=== PATIENT | male | born 1950 | race Caucasian/White ===

== ENCOUNTER 2019-04-28 08:51 | Inpatient (IN) | payer MEDICARE, BC ==
[2019-04-28] MEDS ORDERED: Heparin (Artline) 1,000 ML ONE (09:08)
[2019-04-28] MEDS ORDERED: Lidocaine 1% (PF) 30 ML VIAL ONE (09:09)
[2019-04-28 09:10] LABS: #Basophils 0.1 thou/uL (0.0-0.2); #Eosinphils 0.2 thou/uL (0.0-0.7); #Lymphocytes 2.1 thou/uL (1.20-3.40); #Monocytes 0.9 thou/uL (0.11-0.59); #Neutrophils 6.4 thou/uL (1.40-6.50); %Basophils 0.9 % (0.0-1.0); %Eosinophils 2.3 % (0.0-10.0); %Lymphocytes 21.3 % (21.0-51.0); %Neutrophils 66.6 % (42.0-75.0); Hemoglobin 14.9 g/dL (14.0-18.0); Mean Corpuscular HGB CONC 32.6 g/dL (32.0-36.0); Mean Corpuscular Hemoglobin 30.2 pg (27.0-31.0); Mean Corpuscular Volume 92.8 fL (78.0-98.0); Mean Platelet Volume 8.8 fL (7.4-10.4); Platelet Count 156 thou/uL (130-400); RBC Distribution Width 12.8 % (11.5-14.5); Red Blood Cell (RBC) Count 4.93 mill/uL (4.70-6.10); White Blood Cell (WBC) Count 9.7 thou/uL (4.8-10.8)
[2019-04-28 09:18] LABS: INR-International Normal Ratio 0.9; PTT 30.6 SEC (22.9-36.1); Prothrombin Time 12.3 SEC (12.0-14.7)
[2019-04-28 09:23] LABS: ALT (SGPT) 13 U/L (8-55); AST (SGOT) 66 U/L (5-34); Albumin 4.9 g/dL (3.4-4.8); Alkaline Phosphatase 80 U/L (40-110); Anion Gap 13 mmol/L (10-20); BUN (Urea Nitrogen) 18 mg/dL (8.4-25.7); Bilirubin, Total 0.9 mg/dL (0.2-1.2); Calc. Creatinine Clearance 0 mL/min (70-130); Calcium 10.4 mg/dL (7.8-10.44); Carbon Dioxide 27 mmol/L (23-31); Chloride 103 mmol/L (98-107); Estimated GFR-MDRD 51; Globulin 2.8 g/dL (2.4-3.5); Glucose 107 mg/dL (83-110); Potassium 4.2 mmol/L (3.5-5.1); Protein, Total 7.7 g/dL (5.8-8.1); Sodium 139 mmol/L (136-145)
[2019-04-28] MEDS ORDERED: Fentanyl 100 MCG/2 ML VIAL ONE ×2 (09:24→13:10)
[2019-04-28] MEDS ORDERED: Midazolam HCl 2 mg/2 ml Vial ONE ×2 (09:24→13:10)
[2019-04-28] MEDS ORDERED: Heparin 10,000 UNITS/1 ML VIAL ONE (09:25)
[2019-04-28 09:39] LABS: CKMB 17.9 ng/mL (0-6.6)
[2019-04-28] MEDS ORDERED: Acetaminophen/Codeine 30-300mg Tablet PO PRN ×2 (09:52)
[2019-04-28] MEDS ORDERED: Sodium Chloride 0.9% 200 ML IV PRN (09:52)
[2019-04-28] MEDS ORDERED: Nitroglycerin 0.4 MG TAB (25 Tab Bottle) SL PRN (09:52)
[2019-04-28] MEDS ORDERED: Heparin (Artline) 500 ML ONE (09:53)
[2019-04-28] MEDS ORDERED: Sodium Chloride 0.9% 1,000 ML IV SCH (10:00)
[2019-04-28] MEDS ORDERED: Heparin 10,000 UNITS/ 10 ML VIAL SLOW IVP SCH (10:15)
[2019-04-28] MEDS ORDERED: Magnesium Sulfate 1 GM/2 ML VIAL ONE (10:28)
[2019-04-28] MEDS ORDERED: Sodium Bicarb 50 MEQ/50 ML Abboject 8.4% SYRINGE ONE (10:28)
[2019-04-28] MEDS ORDERED: Dexamethasone 20 MG/5 ML VIAL ONE (10:28)
[2019-04-28] MEDS ORDERED: Calcium Chloride 1 GM/10 ML Abboject SYRINGE ONE (10:28)
[2019-04-28] MEDS ORDERED: Potassium Chloride 60 MEQ/30 ML VIAL ONE (10:28)
[2019-04-28] MEDS ORDERED: Heparin 5,000 UNITS/ML VIAL ONE (10:28)
[2019-04-28] MEDS ORDERED: Heparin 30,000 units/30 ml VIAL ONE (10:28)
[2019-04-28] MEDS ORDERED: Lidocaine 2% PF 100 mg/5 ml Syringe ONE (10:28)
[2019-04-28] MEDS ORDERED: Vecuronium 10 MG VIAL ONE ×2 (10:28→13:10)
[2019-04-28] MEDS ORDERED: PHENYLEPHRINE-NS 100 MCG/ML 10 ML SYRINGE ONE (10:28)
[2019-04-28] MEDS ORDERED: Nitroglycerin 50 MG/250 ML BOT ONE (10:28)
[2019-04-28] MEDS ORDERED: Aminocaproic Acid 5 GM/20 ML VIAL ONE (10:28)
[2019-04-28] MEDS ORDERED: Cardioplegic Soln 1,000 ML BAG ONE (10:28)
[2019-04-28] MEDS ORDERED: Glycopyrrolate 0.2 MG/ML 5 ML SYRINGE ONE (10:28)
[2019-04-28] MEDS ORDERED: Thrombin 5000 UNITS/5 ML VIAL ONE (10:28)
[2019-04-28] MEDS ORDERED: Protamine Sulfate 250 MG/25 ML VIAL ONE (10:28)
[2019-04-28] MEDS ORDERED: Lidocaine 1% PF 5 ML VIAL ONE (10:28)
[2019-04-28] MEDS ORDERED: Ketorolac Tromethamine 30 MG/ML VIAL ONE (10:28)
[2019-04-28] MEDS ORDERED: Papaverine 60 MG/2 ML VIAL ONE (10:28)
[2019-04-28] MEDS ORDERED: ePHEDrine/0.9% NaCl/PF SYRINGE 50 mg/10 ml ONE (10:28)
[2019-04-28] MEDS ORDERED: Ondansetron PF 4 MG/2 ML Vial ONE (10:28)
[2019-04-28 10:54] LABS: Cardiac Risk 4.1 (Less than 4.5)
[2019-04-28] MEDS ORDERED: Iopamidol 370 76% 50 ML VIAL FS ONE (10:56)
[2019-04-28] MEDS ORDERED: Iopamidol 370 76% 100 ML VIAL ONE (10:56)
[2019-04-28] MEDS ORDERED: Heparin 25,000 units/D5W 500 ML IV SCH ×2 (11:00→11:15)
[2019-04-28 11:39] LABS: Prothrombin Time 13.4 SEC (12.0-14.7)
--- NOTE | 2019-04-28 11:41 | HP ---
HISTORY OF PRESENT ILLNESS: Devin Reyes is a 69-year-old male , who had a myocardial infarction in January 1997. He underwent placement of Palmaz- Rosa 4.0 x 15 mm and 3.0 x 15 mm in the LAD by Dr. Burgess, which on films at the present time appears to extend into the diagonal. He apparently has not had cardiology followup since that time. He denies any chest discomfort until April 24 when he noticed approximately 30 seconds of chest pressure. He had a few more episodes over the ensuing several days. Then, yesterday on April 27 at 4:30 a.m., he awoke with 30-40 minutes of chest pressure. He denies any shortness of breath, nausea, vomiting, or diaphoresis with this. This pain resolved, and he went on to play golf later that day without problems. He then decided to come to the emergency room this morning approximately 28 hours after his episode of chest pain, although he denies any chest pain since that time. PAST MEDICAL HISTORY: Hypertension, diabetes, and hypercholesterolemia. MEDICATIONS: None. ALLERGIES: SULFA. OPERATIONS: Multiple knee surgeries, hand surgery, right shoulder surgery, and carpal tunnel surgery. SOCIAL HISTORY: He continues to smoke 5 or 6 cigarettes per day. He has up to 5 or 6 beers at a time, but not every day. FAMILY HISTORY: Father had CABG. REVIEW OF SYSTEMS: A 12-point review of systems is otherwise unremarkable. PHYSICAL EXAMINATION: VITAL SIGNS: Blood pressure 132/70, pulse of 95. HEENT: PERRL. NECK: Supple. CHEST: Clear. CARDIAC: S1 and S2 normal without any S3, S4, or murmurs. Carotid upstrokes normal without bruits. ABDOMEN: Normal bowel sounds without tenderness or organomegaly. EXTREMITIES: Revealed no clubbing, cyanosis, or edema. NEUROLOGIC: Grossly intact. SKIN: Warm and dry. LABORATORY DATA: EKG demonstrates a new Q wave in V3. There also are new Q waves in II, III, and F with [address]-elevation. CBC is unremarkable. Sodium 139, potassium 4.2, chloride 103, carbon dioxide 27, BUN 18, creatinine 1.37, glucose 107, AST 66, CK-MB 17.9. Troponin I 17.611 (troponin and MB resulted after catheterization). IMPRESSION: 1. Inferior ST-elevation myocardial infarction, which appeared to occur 28 hours ago. On cardiac catheterization, the right coronary artery was open with thrombus present. 2. Three-vessel coronary artery disease. 3. History of LAD stent placement. 4. Anterior infarction, which probably occurred whenever he closed his LAD. This is probably an old finding. 5. Hypertension. 6. Hypercholesterolemia. 7. Diabetes. 8. The patient continues to smoke. 9. Positive family history. PLAN: It is recommended Mr. Reyes undergo catheterization even though he has been pain-free for 28 hours. Risks of catheterization were discussed including , myocardial infarction, dye reaction, vascular injury, CVA, transfusion, limb loss, renal loss, etc. Also risk of intervention with PTCA and stent placement was discussed including , myocardial infarction, emergent CABG, restenosis, stent thrombosis, vessel perforation, etc. He understands and agrees to proceed. Drug-eluting stent will be placed if needed. Job ID: [id number] ALICIA
[2019-04-28 11:44] LABS: PTT 135.5 SEC (22.9-36.1)
[2019-04-28] MEDS ORDERED: Communication Order-Pharmacy FS ONE (11:57)
--- NOTE | 2019-04-28 12:27 | RAD ---
XR Chest 1 View Portable HISTORY: Coronary artery disease. Preoperative evaluation. COMPARISON: None FINDINGS: The heart size is normal. The lungs are well expanded without focal areas of consolidation, pneumothorax or pleural effusions. IMPRESSION: No radiographic evidence of acute cardiopulmonary process.
[2019-04-28] MEDS ORDERED: Bupivacaine/Epinephrine 0.5% 10 ML VIAL ONE ×2 (13:07→13:08)
[2019-04-28] MEDS ORDERED: Albumin 5% 500 ML ONE (13:07)
[2019-04-28] MEDS ORDERED: Dexamethasone 4 mg/ml Vial ONE (13:07)
[2019-04-28] MEDS ORDERED: Dexmedetomidine 200 MCG/2 ML VIAL ONE (13:10)
[2019-04-28] MEDS ORDERED: Midazolam HCl 5 mg/5 ml Vial ONE (13:10)
[2019-04-28] MEDS ORDERED: Heparin 10,000 UNITS/1 ML VIAL 30,000 UNITS in Sodium Chloride 0.9% 1,000 ML FS SCH (13:15)
--- NOTE | 2019-04-28 13:55 | CON ---
DATE OF CONSULTATION: 04/28/2019 Chart reviewed/the patient examined/films reviewed. HISTORY OF PRESENT ILLNESS: Mr. Reyes is a 69-year-old gentleman, who was admitted with chest pain and elevated troponins. He was urgently taken to the quality control lab technician and found to have severe 3-vessel disease. Ejection fraction is 35% to 40% on ventriculogram. I have been asked to see and discuss coronary artery bypass grafting. He has been having chest pain on and off for the past 4-5 days. It got severe yesterday morning and took about 45 minutes to lucian on its own. He called Dr. Topete this morning, who referred him immediately to the emergency department. He has a history of coronary artery disease status post stenting in 1996. He also has diabetes and high blood pressure. His cholesterol has been managed with a statin. PAST MEDICAL HISTORY: 1. Coronary artery disease status post stenting. 2. Diabetes mellitus. 3. Hypertension. 4. Dyslipidemia. PAST SURGICAL HISTORY: 1. Right knee surgery post football injury. 2. Right shoulder surgery. 3. Hand surgery. SOCIAL HISTORY: He drinks alcohol socially. He smokes also socially. ALLERGIES: SULFA. CURRENT MEDICATIONS: 1. Glipizide 10 mg b.i.d. 2. Glucophage 1000 mg b.i.d. 3. Lisinopril 20 mg b.i.d. 4. Atorvastatin 20 mg nightly. 5. Aspirin 325 mg daily. REVIEW OF SYSTEMS: A 10-point review of systems is performed and negative except as above. PHYSICAL EXAMINATION: GENERAL: This is a well-developed, well-nourished man, resting comfortably in the ICU without complaint. VITAL SIGNS: He is in sinus rhythm with a normal-appearing EKG rhythm. Heart rate is 80 and blood pressure is 150/74. HEENT: Sclerae nonicteric. Pupils are equal and round bilaterally. NECK: Supple without bruit. CHEST: Clear bilaterally. HEART: Rhythm is regular without murmur. ABDOMEN: Soft and nontender. EXTREMITIES: No cyanosis, clubbing, or edema. VASCULAR: He has palpable carotid, radial, femoral pulses bilaterally. There is no dorsalis pedis pulse. He has palpable posterior tibial pulses. VENOUS: There are no venous varicosities or venous stasis changes. PSYCHIATRIC: He is awake, alert, and oriented to person, place, and time. ASSESSMENT AND PLAN: This is a very pleasant 69-year-old gentleman status post myocardial infarction with acute coronary syndrome. Urgent coronary artery bypass grafting is recommended. The risks, benefits, and options of surgery had been discussed with him. Potential targets included left anterior descending, diagonal, obtuse marginal and posterior descending artery. Job ID: [id number]
[2019-04-28] MEDS ORDERED: CEFAZOLIN 1 GM VIAL SLOW IVP SCH (14:00)
[2019-04-28] MEDS ORDERED: Aspirin 81 mg Enteric Coated Tablet ONE (15:00)
[2019-04-28] MEDS ORDERED: Sodium Chloride 0.9% 1,000 ML BAG ONE (15:00)
[2019-04-28] MEDS ORDERED: Metoprolol Tartrate 5 MG/5 ML VIAL ONE (15:00)
[2019-04-28] MEDS ORDERED: Heparin 10,000 UNITS/ 10 ML VIAL ONE (15:00)
[2019-04-28] MEDS ORDERED: Ondansetron PF 4 MG/2 ML Vial IVP PRN (17:46)
[2019-04-28] MEDS ORDERED: D5 1/2 NS w/20 mEq KCL 1,000 ML IV SCH (17:46)
[2019-04-28] MEDS ORDERED: Post-Op Insulin Drip Protocol IVPB ONE (17:46)
[2019-04-28] MEDS ORDERED: Mag-Al 1200 mg/1200 mg/30 ML UDCUP PO PRN (17:46)
[2019-04-28] MEDS ORDERED: hydrALAZINE 20 MG/ML VIAL SLOW IVP PRN (17:46)
[2019-04-28] MEDS ORDERED: Guaifenesin DM 100-10/5 ML UDCUP PO PRN (17:46)
[2019-04-28] MEDS ORDERED: Bisacodyl 5 MG TAB PO PRN (17:46)
[2019-04-28] MEDS ORDERED: Norepinephrine 8 MG/0.9% NS 250 ML IVPB PRN (17:46)
[2019-04-28] MEDS ORDERED: Fentanyl 100 MCG/2 ML VIAL SLOW IVP PRN (17:46)
[2019-04-28] MEDS ORDERED: Morphine 2 MG/ML SYRINGE SLOW IVP PRN (17:46)
[2019-04-28] MEDS ORDERED: Nitroglycerin 50 MG/250 ML BOT 250 ML IVPB PRN (17:46)
[2019-04-28] MEDS ORDERED: Hetastarch 6% 500 ML 500 ML IVPB PRN (17:46)
[2019-04-28] MEDS ORDERED: HYDROcodone/Acetaminophen 5/325 mg Tablet PO PRN (17:46)
[2019-04-28] MEDS ORDERED: Potassium Chloride 20 MEQ/100 ML PREMIX BAG IVPB PRN (17:46)
[2019-04-28] MEDS ORDERED: Bisacodyl 10 MG SUPP PR PRN (17:46)
[2019-04-28] MEDS ORDERED: Promethazine HCl 25 MG/ML VIAL IM PRN (17:46)
[2019-04-28] MEDS ORDERED: HUMULIN R 100 UNITS in Sodium Chloride 0.9% 100 ML IVPB SCH (17:48)
[2019-04-28] MEDS ORDERED: Dextrose 5% in Water 1,000 ML IV PRN (17:48)
[2019-04-28] MEDS ORDERED: Dextrose 50% Abboject 50 ML SYRINGE SLOW IVP PRN (17:48)
[2019-04-28] MEDS ORDERED: Morphine 4 MG/ML VIAL ONE (17:52)
[2019-04-28] MEDS ORDERED: Magnesium 2 GM/50 ML 2 GM in Premix Bag 1 BAG IVPB SCH (18:00)
[2019-04-28 18:01] LABS: INR-International Normal Ratio 1.4; PTT 33.5 SEC (22.9-36.1)
[2019-04-28] MEDS: Ketorolac Tromethamine 30 MG/ML VIAL IVP SCH (18:02)
[2019-04-28 18:12] LABS: #Eosinphils 0.1 thou/uL (0.0-0.7); #Lymphocytes 1.4 thou/uL (1.20-3.40); #Monocytes 0.6 thou/uL (0.11-0.59); #Neutrophils 11.9 thou/uL (1.40-6.50); %Basophils 0.3 % (0.0-1.0); %Eosinophils 0.8 % (0.0-10.0); %Lymphocytes 9.8 % (21.0-51.0); %Neutrophils 85.1 % (42.0-75.0); Hemoglobin 11.4 g/dL (14.0-18.0); Mean Corpuscular HGB CONC 32.8 g/dL (32.0-36.0); Mean Corpuscular Hemoglobin 30.4 pg (27.0-31.0); Mean Corpuscular Volume 92.6 fL (78.0-98.0); Mean Platelet Volume 9.1 fL (7.4-10.4); Platelet Count 90 thou/uL (130-400); RBC Distribution Width 12.6 % (11.5-14.5); Red Blood Cell (RBC) Count 3.75 mill/uL (4.70-6.10)
[2019-04-28 18:13] LABS: MDiff Complete? YES; Platelet Morphology Comment Appears Decreased; Polychromasia SLIGHT = 2-3 cells (100X) (0-2/hpf)
--- NOTE | 2019-04-28 18:13 | RAD ---
RADIOGRAPH CHEST 1 VIEW: Supine DATE: 04/28/2019 HISTORY: 69-year-old male status post open heart surgery COMPARISON: 04/28/2019 12:12 PM FINDINGS: There is no airspace density or pulmonary edema. The lateral costophrenic angles are sharp. Supine po sitioning makes this study insensitive for the detection of pneumothorax. Right subclavian central venous catheter with distal tip overlying the mid to lower portion of right atrium. New sternotomy wires. Mediastinal chest tubes, with distal tip of the abdomen at midline and distal tip of the other overly ing left upper lobe. IMPRESSION: 1. Status post open heart surgery with life support lines as mentioned above. 2. No acute pulmonary findings.
[2019-04-28 18:24] LABS: Anion Gap 13 mmol/L (10-20); BUN (Urea Nitrogen) 18 mg/dL (8.4-25.7); Calc. Creatinine Clearance 67 mL/min (70-130); Calcium 8.6 mg/dL (7.8-10.44); Carbon Dioxide 23 mmol/L (23-31); Chloride 108 mmol/L (98-107); Estimated GFR-MDRD 62; Glucose 202 mg/dL (83-110); Potassium 4.8 mmol/L (3.5-5.1); Sodium 139 mmol/L (136-145)
[2019-04-28] MEDS ORDERED: Acetaminophen 1,000 MG in Premix Bag 1 BAG IVPB SCH (19:15)
[2019-04-28] MEDS: Fentanyl 100 MCG/2 ML VIAL SLOW IVP PRN (19:35)
[2019-04-28 20:01] LABS: Critical Call Chem Troponin I RESULT DECREASING
[2019-04-28 20:29] LABS: CKMB 14.1 ng/mL (0-6.6); Critical Call CKMB RESULT DECREASING
[2019-04-28] MEDS ORDERED: Famotidine/PF 20 mg/2ml Vial SLOW IVP SCH (21:00)
[2019-04-28] MEDS: HYDROcodone/Acetaminophen 5/325 mg Tablet PO PRN (21:34)
[2019-04-28] MEDS: CEFAZOLIN 2 GM in Premix Bag 1 BAG IVPB SCH (21:42)
[2019-04-28 23:38] LABS: Hemoglobin 10.6 g/dL (14.0-18.0)
[2019-04-28 23:54] LABS: Potassium 3.9 mmol/L (3.5-5.1)
[2019-04-29] MEDS: Fentanyl 100 MCG/2 ML VIAL SLOW IVP PRN ×3 (00:27→20:58)
[2019-04-29] MEDS: Ketorolac Tromethamine 30 MG/ML VIAL IVP SCH ×4 (00:27→17:41)
--- NOTE | 2019-04-29 00:36 | OP ---
DATE OF PROCEDURE: 04/28/2019 PREOPERATIVE DIAGNOSES: Coronary artery disease/status post ST-elevation myocardial infarction/diabetes mellitus/hypertension/dyslipidemia. POSTOPERATIVE DIAGNOSES: Coronary artery disease/status post ST-elevation myocardial infarction/diabetes mellitus/hypertension/dyslipidemia. PROCEDURES PERFORMED: 1. Emergency coronary artery bypass grafting x4. a. Left internal mammary artery to 2.0 mm mid LAD - good conduit and target. b. Reverse saphenous vein to 3.0 mm PDA - good conduit and target. c. Reverse saphenous vein to 4.0 mm OM - good conduit and target. d. Reverse saphenous vein 3.0 mm diagonal - good conduit and target. INTERNATIONAL SOURCING MANAGER SURGEON: Uriel Ortiz MD ANESTHESIA: General endotracheal. ANESTHESIOLOGIST: Paola Floyd MD. PUMP TIME: 57 minutes. CROSS-CLAMP TIME: 33 minutes. LOW CORE TEMPERATURE: 34 degrees Celsius. LABORATORY SAMPLER: Mitali [place]. DRAINS: 24-Green[place] chest tubes x2. DRIPS: None. TRANSFUSIONS: None. DESCRIPTION OF PROCEDURE: After consent was obtained, the patient was brought to the operating room and placed in supine position on the operating room table. Appropriate central line was placed and general endotracheal anesthesia was induced. Chest and legs were prepped and draped in usual sterile fashion. Greater saphenous vein was harvested through skip incisions in the left leg. Wounds were irrigated and closed in layers. Median sternotomy was performed. Left internal mammary artery was harvested as a pedicle graft. The patient was systemically heparinized. Distal pedicle was divided and infused with papaverine. Thymic fat and pericardium were divided with electrocautery. Pericardial stay sutures were placed. Aortic and atrial cannulation was performed. After adequate heparinization, retrograde prime was performed. The patient was placed on cardiopulmonary bypass. Distal targets were marked. Aortic cross-clamp was applied and antegrade sanguineous cardioplegic arrest was obtained. 1 L of antegrade cold [place] cardioplegia was given. Topical cold solution was used. Reverse saphenous vein was anastomosed to the PDA in end-to-side fashion with running 7-0 Prolene suture. Anastomosis was tested and was hemostatic. Reverse saphenous vein was anastomosed to the OM in end-to-side fashion with running 7-0 Prolene suture. Anastomosis was tested and was hemostatic. Reverse saphenous vein was anastomosed to diagonal in end-to-side fashion with running 7-0 Prolene suture. Anastomosis was tested and was hemostatic. Mammary artery was brought through a window of the pericardium and anastomosed to the mid LAD in an end-to-side fashion with running 7-0 Prolene suture. On release of mammary clamps, good hooding of the anastomosis and good distal flow. Pedicle was secured with interrupted 6-0 Prolene suture. Cross-clamp was removed and partial occluding clamp placed. Saphenous veins were anastomosed to individual puncture sites on the aorta with a running 6-0 Prolene suture. The partial occluding clamp was removed and graft was deaired. Anastomoses were inspected for hemostasis, which was good. The patient was warmed and weaned from cardiopulmonary bypass. After resumption of sinus rhythm, good hemodynamics, temperature greater than 36.5, bypass was discontinued. Transfusions were given. Protamine was administered. Decannulation was then performed and pursestring suture secured. 24-[place] chest tubes were placed in the mediastinum. The sternum was treated with vancomycin paste. After adequate hemostasis had been obtained, sternum was closed with #7 wire. The sternum was treated with platelet rich plasma and wires were twisted and buried. The wounds were irrigated and treated with platelet poor plasma and closed in multiple layers. Needle, sponge, and instrument counts were all reported as correct at the end of the procedure. The patient tolerated the procedure well, was awakened, extubated, and transferred to the intensive care unit in stable, but critical condition. Job ID: [id number]
[2019-04-29] MEDS: HYDROcodone/Acetaminophen 5/325 mg Tablet PO PRN (01:45)
[2019-04-29 01:54] LABS: Critical Call Chem Troponin I RESULT DECREASING
[2019-04-29 02:14] LABS: CKMB 13.5 ng/mL (0-6.6); Critical Call CKMB RESULT DECREASING
[2019-04-29] MEDS ORDERED: Nicotine 7 MG PATCH TD SCH ×2 (05:00→23:59)
[2019-04-29 05:05] LABS: #Lymphocytes 0.6 thou/uL (1.20-3.40); #Monocytes 0.9 thou/uL (0.11-0.59); #Neutrophils 10.8 thou/uL (1.40-6.50); %Eosinophils 0.1 % (0.0-10.0); %Lymphocytes 4.9 % (21.0-51.0); %Monocytes 7.6 % (0.0-10.0); %Neutrophils 87.4 % (42.0-75.0); Hemoglobin 10.1 g/dL (14.0-18.0); Mean Corpuscular HGB CONC 33.6 g/dL (32.0-36.0); Mean Corpuscular Hemoglobin 30.8 pg (27.0-31.0); Mean Corpuscular Volume 91.7 fL (78.0-98.0); Mean Platelet Volume 9.7 fL (7.4-10.4); Platelet Count 106 thou/uL (130-400); RBC Distribution Width 12.5 % (11.5-14.5); Red Blood Cell (RBC) Count 3.29 mill/uL (4.70-6.10); White Blood Cell (WBC) Count 12.3 thou/uL (4.8-10.8)
[2019-04-29 05:21] LABS: Anion Gap 14 mmol/L (10-20); BUN (Urea Nitrogen) 21 mg/dL (8.4-25.7); Calc. Creatinine Clearance 60 mL/min (70-130); Calcium 8.8 mg/dL (7.8-10.44); Carbon Dioxide 23 mmol/L (23-31); Chloride 107 mmol/L (98-107); Estimated GFR-MDRD 55; Glucose 131 mg/dL (83-110); Potassium 4.5 mmol/L (3.5-5.1); Sodium 139 mmol/L (136-145)
[2019-04-29 05:59] LABS: Critical Call Chem Troponin I RESULT DECREASING
[2019-04-29 06:20] LABS: CKMB 9.8 ng/mL (0-6.6); Critical Call CKMB RESULT DECREASING
[2019-04-29] MEDS: CEFAZOLIN 2 GM in Premix Bag 1 BAG IVPB SCH ×2 (06:35→14:20)
[2019-04-29 07:14] VITALS: BMI 27.5
[2019-04-29] MEDS: Acetaminophen 325 MG TAB PO PRN (07:32)
[2019-04-29] MEDS: traMADol HCl 50 MG TAB PO PRN ×2 (07:32→17:43)
[2019-04-29] MEDS: glipiZIDE 10 MG TAB PO SCH ×2 (07:38→17:50)
[2019-04-29] MEDS ORDERED: Insulin Glargine 12 UNITS in Pre-Filled Syringe 1 EACH SC SCH (07:45)
--- NOTE | 2019-04-29 07:55 | CON ---
DATE OF CONSULTATION: REQUESTING PHYSICIAN: Dr. Aponte. REASON FOR CONSULTATION: Medical management of post-CABG patient. HISTORY OF PRESENTING COMPLAINT: A 69-year-old male with past medical history of hypertension, diabetes, chronic tobacco use, developed substernal chest pain, and presented for chest pain. Noted with EKG changes and ST-elevation ME. The patient underwent urgent cardiac cath with finding of 4-vessel disease. He underwent subsequent 4-vessel CABG that was unremarkable. He is currently extubated and lying in bed. He denies any headache or dizziness. He complains of chest pain now over the surgical sites. He denies any shortness of breath. Positive family history of coronary artery disease with father having CABG in the past. PAST MEDICAL HISTORY: Hypertension, diabetes mellitus. PAST SURGICAL HISTORY: Knee surgery. HOME MEDICATIONS: Reviewed. See MAR. ALLERGIES: SULFA DRUGS. SOCIAL HISTORY: The patient denies any alcohol or illicit drug use. Admits to 4 to 5 cigarette use per day, and trying to quit. REVIEW OF SYSTEMS: All systems review x14 were negative except as mentioned above. FAMILY HISTORY: History of coronary artery disease in the father. PHYSICAL EXAMINATION: VITAL SIGNS: Currently, blood pressure of 95/61, pulse of 87, respiratory rate of 18, and O2 sat of 95% on 2 L nasal cannula. GENERAL: Average built elderly male, lying in bed, conversant. HEENT: Head is atraumatic and normocephalic. Pupils are equal and reactive to light. CARDIOVASCULAR: S1 and S2. Rate and rhythm regular. CHEST: Good air entry bilaterally. Clear drain tubes in situ. ABDOMEN: Full, soft, . Bowel sounds positive. EXTREMITIES: No calf tenderness dressing area in situ. NEUROLOGIC: The patient is alert and oriented. Cranial nerves 2 through 12 grossly intact. LABORATORY DATA: Reviewed. See previous lab on presentation. Current glucose trending at 118. Troponin at presentation was 13. Hemoglobin , hematocrit Potas[place] 4.8, creatinine 1.1. IMPRESSION: 1. Non-ST elevation myocardial infarction-status post coronary artery bypass grafting now. 2. History of hypertension. 3. History of diabetes mellitus. PLAN: Agree with current management. Continue insulin drip for now. We switch to sliding insulin in a.m. Continue gentle IV fluid. We initiate nicotine patch in a.m. Continue postsurgical management. Nothing more to add at this time. We will continue to follow along. We defer lipid profile to Cardiology. DVT prophylaxis, can resume heparin subcu in a.m. We will continue to follow along. Time spent on review of record and discussion of the patient greater than 50 minutes. Job ID: [id number]
--- NOTE | 2019-04-29 08:32 | RAD ---
CHEST ONE VIEW: INDICATIONS: History of status post open heart surgery. COMPARISON: Prior exam dated 04/28/2019. FINDINGS: Right-sided subclavian central venous catheter, mediastinal drain and left-sided thoracostomy tube is unchanged. Cardiomegaly with post CABG change is stable. No pneumothorax is evident. The lungs are c lear. No pleural effusion is evident. IMPRESSION: 1. Stable mild cardiomegaly and post coronary artery bypass grafting change. 2. Tubes and lines as above. POS: TPC
[2019-04-29] MEDS ORDERED: Aspirin 325 MG TAB PO SCH (09:00)
[2019-04-29] MEDS: Magnesium 2 GM/50 ML 2 GM in Premix Bag 1 BAG IVPB SCH (09:11)
--- NOTE | 2019-04-29 10:01 | PDOC.HOSPP ---
- Subjective Encounter Date: 04/29/19 Encounter Time: 09:59 Subjective: Mr. Reyes was seen today in follow-up post CABG. He notes some soreness in his chest, but expected from surgery. He denies dyspnea. - Objective Vital Signs & Weight: Vital Signs (12 hours) Temp Pulse Resp Pulse Ox 04/29/19 08:00 98.3 F 98 04/29/19 07:04 98 19 98 04/29/19 04:00 98.1 F 04/29/19 02:33 98 04/29/19 00:00 97.6 F 04/28/19 23:55 82 16 99 Weight Weight 181 lb 7.047 oz Most Recent Monitor Data Heart Rate from ECG 104 NIBP 100/55 NIBP BP-Mean 70 Respiration from ECG 13 SpO2 97 I&O: 04/28/19 04/29/19 04/30/19 06:59 06:59 06:59 Intake Total 1108.5 120 Output Total 930 70 Balance 178.5 50 Result Diagrams: 04/29/19 04:30 04/29/19 04:30 Additional Labs: Accuchecks 04/29/19 04/29/19 04/29/19 08:54 06:16 05:26 POC Glucose 146 H 149 H 143 H 04/29/19 04/29/19 04/29/19 04:34 03:10 02:29 POC Glucose 147 H 110 122 H 04/29/19 04/29/19 04/28/19 01:21 00:22 23:01 POC Glucose 118 H 113 H 116 H 04/28/19 04/28/19 04/28/19 22:17 21:13 20:08 POC Glucose 154 H 158 H 188 H 04/28/19 04/28/19 04/28/19 19:23 17:46 16:50 POC Glucose 200 H 215 H 172 H 04/28/19 04/28/19 04/28/19 16:16 15:42 15:09 POC Glucose 182 H 161 H 151 H 04/28/19 14:11 POC Glucose 118 H Hospitalist ROS - Medication Medications: Active Medications Generic Name Dose Route Start Last Admin Trade Name Freq PRN Reason Stop Dose Admin Acetaminophen 650 mg 04/28/19 17:46 04/29/19 07:32 Tylenol PO 650 mg Q6H PRN Administration Headache/Fever Or Mild Pain Albumin Human 12.5 gm 04/28/19 17:46 04/29/19 01:48 Albumin 5% IVPB 04/29/19 17:47 12.5 gm Q6H PRN Administration To Maintain SBP> 90 mmHG Albuterol/Ipratropium 3 ml 04/28/19 19:00 04/29/19 07:04 Duoneb NEB 3 ml [id number] BRODY Administration Aspirin 325 mg 04/29/19 09:00 04/29/19 09:11 Aspirin PO 325 mg DAILY BRODY Administration Fentanyl 50 mcg 04/28/19 17:46 04/29/19 04:23 Sublimaze SLOW IVP 04/30/19 17:14 50 mcg Q2H PRN Administration Severe Pain (7-10) Glipizide 10 mg 04/29/19 07:30 04/29/19 07:38 Glucotrol PO 10 mg BID-AC BRODY Administration Cefazolin Sodium/Dextrose 2 gm 50 mls @ 100 mls/hr 04/28/19 22:00 04/29/19 06 :35 / Device IVPB 04/29/19 14:29 50 mls Q8HR BRODY Administration Magnesium Sulfate 2 gm/ Device 50 mls @ 50 mls/hr 04/29/19 09:00 04/29/19 09: 11 IVPB 04/30/19 09:59 50 mls QAM BRODY Administration Insulin Glargine 12 units/ 0.12 mls @ 0 mls/hr 04/29/19 07:45 04/29/19 09:00 Miscellaneous Medication SC 04/29/19 10:00 0.12 mls NOW BRODY Administration Ketorolac Tromethamine 15 mg 04/28/19 18:00 04/29/19 06:35 Toradol IVP 05/01/19 18:01 15 mg Q6HR BRODY Administration Nicotine 7 mg 04/29/19 05:00 04/29/19 04:44 Nicoderm Patch TD 7 mg Q24HR BRODY Administration Pantoprazole Sodium 40 mg 04/29/19 09:00 04/29/19 07:32 Protonix PO 40 mg DAILY BRODY Administration Potassium Chloride 20 meq 04/28/19 17:46 04/29/19 01:55 Kcl IVPB 20 meq PRN PRN Administration K level </= 4.0 Tramadol HCl 50 mg 04/29/19 06:54 04/29/19 07:32 Ultram PO 50 mg Q6H PRN Administration Moderate Pain (4-6) - Exam Eye: PERRL Heart: RRR, no gallops, no rubs, normal peripheral pulses, murmur present, II/ IV (systolic at the base) Respiratory: CTAB, no wheezes, no rales, no ronchi, normal chest expansion, no tachypnea, normal percussion Gastrointestinal: soft, non-tender, non-distended, normal bowel sounds, no palpable masses, no hepatomegaly Extremities: no cyanosis, no clubbing, no edema Hosp A/P (1) CAD (coronary artery disease) Code(s): I25.10 - ATHSCL HEART DISEASE OF [place] CORONARY ARTERY W/O ANG PCTRS Status: Acute (2) Hypertension Code(s): I10 - ESSENTIAL (PRIMARY) HYPERTENSION Status: Acute (3) Diabetes mellitus type 2 in nonobese Code(s): E11.9 - TYPE 2 DIABETES MELLITUS WITHOUT COMPLICATIONS Status: Acute - Plan * CAD s/p CABG X4 vessels- he is clinically stable * HTN- blood pressure is controlled * DM- blood glucose is stable- he has been placed back on Glypizide, and taken off the insulin drip * Continue SSI * Continue Post op care as per CV surgery
[2019-04-29] MEDS: Insulin Regular 300 UNITS/3 ML VIAL SC PRN ×2 (17:45→20:58)
[2019-04-29] MEDS: Atorvastatin Calcium 40 MG TAB PO SCH (20:01)
[2019-04-29] MEDS ORDERED: Bisacodyl 5 MG TAB PO PRN (20:48)
[2019-04-29] MEDS ORDERED: Bisacodyl 10 MG SUPP PR PRN (20:48)
[2019-04-29] MEDS ORDERED: diphenhydrAMINE 25 MG CAP PO PRN (20:48)
[2019-04-29] MEDS ORDERED: Nitroglycerin 0.4 MG TAB (25 Tab Bottle) SL PRN (20:48)
[2019-04-29] MEDS ORDERED: Guaifenesin DM 100-10/5 ML UDCUP PO PRN (20:48)
[2019-04-29] MEDS ORDERED: Artificial Tears 18 DROP/0.9 ML EA EYE PRN (20:48)
[2019-04-29] MEDS ORDERED: Zolpidem Tartrate 5 MG TAB PO PRN (20:48)
[2019-04-29] MEDS ORDERED: Mineral Oil ENEMA PR PRN (20:48)
[2019-04-29] MEDS ORDERED: Mag-Al 1200 mg/1200 mg/30 ML UDCUP PO PRN (20:48)
[2019-04-30] MEDS: Ketorolac Tromethamine 30 MG/ML VIAL IVP SCH ×5 (00:02→23:34)
[2019-04-30] MEDS ORDERED: Amiodarone 150 MG, Admixture Fee 1 EACH in Dextrose 5% in Water 100 ML IVPB SCH (03:15)
[2019-04-30] MEDS: traMADol HCl 50 MG TAB PO PRN (03:22)
[2019-04-30] MEDS: Amiodarone 450 MG, Admixture Fee 1 EACH in Dextrose 5% in Water 250 ML IVPB SCH ×2 (03:30→10:04)
[2019-04-30 03:47] LABS: ALT (SGPT) 7 U/L (8-55); AST (SGOT) 31 U/L (5-34); Albumin 3.6 g/dL (3.4-4.8); Alkaline Phosphatase 48 U/L (40-110); Bilirubin, Direct 0.4 mg/dL (0.1-0.3); Bilirubin, Total 0.7 mg/dL (0.2-1.2); Magnesium 2.1 mg/dL (1.6-2.6); Protein, Total 5.6 g/dL (5.8-8.1)
[2019-04-30] MEDS ORDERED: Digoxin 0.5 MG/2 ML AMP SLOW IVP SCH ×4 (07:00→18:00)
[2019-04-30] MEDS: Aspirin 325 mg Enteric Coated Tablet PO SCH (07:57)
[2019-04-30] MEDS: glipiZIDE 10 MG TAB PO SCH ×2 (07:58→16:41)
[2019-04-30] MEDS: Magnesium 2 GM/50 ML 2 GM in Premix Bag 1 BAG IVPB SCH (07:58)
[2019-04-30] MEDS: Insulin Regular 300 UNITS/3 ML VIAL SC PRN ×3 (08:18→22:16)
--- NOTE | 2019-04-30 13:17 | PDOC.HOSPP ---
- Subjective Encounter Date: 04/30/19 Encounter Time: 13:15 Subjective: Mr. Reyes was seen today in follow-up post CABG. He does not have any complaints except feeling tired. His heart rate was also noted to be elevated. - Objective Vital Signs & Weight: Vital Signs (12 hours) Temp Pulse Resp BP Pulse Ox 04/30/19 12:16 98.9 F 95 20 125/63 04/30/19 12:11 96 04/30/19 11:25 97.3 F L 138 H 20 104/57 L 95 04/30/19 10:32 103/64 04/30/19 10:21 146 H 04/30/19 09:28 96/61 04/30/19 08:06 97.7 F 146 H 16 97/72 96 04/30/19 07:55 145 H 04/30/19 03:50 99.1 F 162 H 16 104/59 L 99 04/30/19 02:31 99.2 F 94 20 95/60 97 Weight Weight 185 lb 9.6 oz Most Recent Monitor Data Heart Rate from ECG 111 NIBP 123/61 NIBP BP-Mean 81 Respiration from ECG 27 SpO2 96 I&O: 04/29/19 04/30/19 05/01/19 06:59 06:59 06:59 Intake Total 1108.5 1190 Output Total 930 380 Balance 178.5 810 Result Diagrams: 04/29/19 04:30 04/29/19 04:30 Additional Labs: Accuchecks 04/30/19 04/30/19 04/29/19 10:42 05:45 20:37 POC Glucose 274 H 227 H 217 H 04/29/19 04/29/19 19:53 17:25 POC Glucose 99 159 H Hospitalist ROS - Medication Medications: Active Medications Generic Name Dose Route Start Last Admin Trade Name Freq PRN Reason Stop Dose Admin Acetaminophen 650 mg 04/28/19 17:46 04/29/19 07:32 Tylenol PO 650 mg Q6H PRN Administration Headache/Fever Or Mild Pain Aspirin 325 mg 04/30/19 09:00 04/30/19 07:57 Ecotrin PO 325 mg DAILY BRODY Administration Atorvastatin Calcium 40 mg 04/29/19 21:00 04/29/19 20:01 Lipitor PO 40 mg HS BRODY Administration Digoxin 0.125 mg 04/30/19 09:00 04/30/19 10:21 Lanoxin SLOW IVP 0.125 mg DAILY BRODY Administration Digoxin 0.25 mg 04/30/19 12:00 04/30/19 12:11 Lanoxin SLOW IVP 04/30/19 14:00 0.25 mg 1200 BRODY Administration Fentanyl 50 mcg 04/28/19 17:46 04/29/19 20:58 Sublimaze SLOW IVP 04/30/19 17:14 50 mcg Q2H PRN Administration Severe Pain (7-10) Glipizide 10 mg 04/29/19 07:30 04/30/19 07:58 Glucotrol PO 10 mg BID-AC BRODY Administration Amiodarone HCl 450 mg/ 259 mls @ 0 mls/hr 04/30/19 03:15 04/30/19 10:04 Miscellaneous Medication 1 IVPB 259 mls each/ Dextrose/Water INF BRODY Administration Protocol As Directed Insulin Human Regular 0 units 04/28/19 17:48 04/30/19 12:25 Humulin R SC 8 units Q4H PRN Administration POST OP SLIDING SCALE Protocol Ketorolac Tromethamine 15 mg 04/28/19 18:00 04/30/19 12:06 Toradol IVP 05/01/19 18:01 15 mg Q6HR BRODY Administration Pantoprazole Sodium 40 mg 04/29/19 09:00 04/30/19 07:59 Protonix PO 40 mg DAILY BRODY Administration Potassium Chloride 20 meq 04/28/19 17:46 04/29/19 01:55 Kcl IVPB 20 meq PRN PRN Administration K level </= 4.0 Tramadol HCl 50 mg 04/29/19 06:54 04/30/19 03:22 Ultram PO 50 mg Q6H PRN Administration Moderate Pain (4-6) - Exam Eye: PERRL Heart: RRR, no murmur, no gallops, no rubs, normal peripheral pulses Respiratory: CTAB, no wheezes, no rales, no ronchi, normal chest expansion, no tachypnea, normal percussion Gastrointestinal: soft, non-tender, non-distended, normal bowel sounds, no palpable masses, no hepatomegaly, no splenomegaly Extremities: no cyanosis, no clubbing, no edema Hosp A/P (1) CAD (coronary artery disease) Code(s): I25.10 - ATHSCL HEART DISEASE OF [place] CORONARY ARTERY W/O ANG PCTRS Status: Acute (2) Hypertension Code(s): I10 - ESSENTIAL (PRIMARY) HYPERTENSION Status: Acute (3) Diabetes mellitus type 2 in nonobese Code(s): E11.9 - TYPE 2 DIABETES MELLITUS WITHOUT COMPLICATIONS Status: Acute - Plan * CAD s/p CABG X4 vessels- he has developed AFIB with RVR and has been placed on a Cardizem drip * HTN- blood pressure is controlled * DM- blood glucose is a bit elevated- will add a low dose long acting insulin * Continue SSI * Continue Cardiac Rehab
[2019-04-30] MEDS: Insulin Glargine 5 UNITS in Pre-Filled Syringe 1 EACH SC SCH (22:18)
[2019-04-30] MEDS: Atorvastatin Calcium 40 MG TAB PO SCH (22:18)
[2019-05-01] MEDS: Amiodarone 450 MG, Admixture Fee 1 EACH in Dextrose 5% in Water 250 ML IVPB SCH (00:42)
[2019-05-01] MEDS: traMADol HCl 50 MG TAB PO PRN ×4 (04:10→23:09)
[2019-05-01 04:33] LABS: Anion Gap 7 mmol/L (10-20); BUN (Urea Nitrogen) 22 mg/dL (8.4-25.7); Calc. Creatinine Clearance 58 mL/min (70-130); Calcium 8.5 mg/dL (7.8-10.44); Carbon Dioxide 26 mmol/L (23-31); Chloride 103 mmol/L (98-107); Estimated GFR-MDRD 50; Glucose 116 mg/dL (83-110); Potassium 3.9 mmol/L (3.5-5.1); Sodium 132 mmol/L (136-145)
[2019-05-01 04:37] LABS: Digoxin 1.08 ng/mL (0.8-2.0)
[2019-05-01] MEDS: Ketorolac Tromethamine 30 MG/ML VIAL IVP SCH ×3 (05:10→17:14)
[2019-05-01] MEDS: glipiZIDE 10 MG TAB PO SCH ×2 (08:41→16:14)
[2019-05-01] MEDS: Aspirin 325 mg Enteric Coated Tablet PO SCH (08:41)
[2019-05-01] MEDS: Amiodarone 200 MG TAB PO SCH ×2 (09:18→20:44)
[2019-05-01] MEDS: Insulin Regular 300 UNITS/3 ML VIAL SC PRN (11:20)
--- NOTE | 2019-05-01 11:24 | PDOC.HOSPP ---
- Subjective Encounter Date: 05/01/19 Encounter Time: 11:22 Subjective: Mr. Reyes was seen today in follow-up post CABG. He does not have any complaints. He says he feels much better today. - Objective Vital Signs & Weight: Vital Signs (12 hours) Temp Pulse Resp BP Pulse Ox 05/01/19 08:00 98.5 F 91 18 110/58 L 95 05/01/19 03:35 98.8 F 86 18 106/57 L 92 L Weight Weight 185 lb 6.4 oz Most Recent Monitor Data Heart Rate from ECG 111 NIBP 123/61 NIBP BP-Mean 81 Respiration from ECG 27 SpO2 96 I&O: 04/30/19 05/01/19 05/02/19 06:59 06:59 06:59 Intake Total 1190 450 120 Output Total 380 600 250 Balance 810 -150 -130 Result Diagrams: 04/29/19 04:30 05/01/19 03:56 Additional Labs: Accuchecks 05/01/19 05/01/19 04/30/19 10:38 05:21 20:08 POC Glucose 209 H 140 H 174 H 04/30/19 16:46 POC Glucose 126 H Hospitalist ROS - Medication Medications: Active Medications Generic Name Dose Route Start Last Admin Trade Name Freq PRN Reason Stop Dose Admin Acetaminophen 650 mg 04/28/19 17:46 04/29/19 07:32 Tylenol PO 650 mg Q6H PRN Administration Headache/Fever Or Mild Pain Amiodarone HCl 400 mg 05/01/19 09:00 05/01/19 09:18 Cordarone PO 400 mg BID BRODY Administration Aspirin 325 mg 04/30/19 09:00 05/01/19 08:41 Ecotrin PO 325 mg DAILY BRODY Administration Atorvastatin Calcium 40 mg 04/29/19 21:00 04/30/19 22:18 Lipitor PO 40 mg HS BRODY Administration Glipizide 10 mg 04/29/19 07:30 05/01/19 08:41 Glucotrol PO 10 mg BID-AC BRODY Administration Amiodarone HCl 450 mg/ 259 mls @ 0 mls/hr 04/30/19 03:15 05/01/19 00:42 Miscellaneous Medication 1 IVPB 05/01/19 12:00 259 mls each/ Dextrose/Water INF BRODY Administration Protocol As Directed Insulin Glargine 5 units/ 0.05 mls @ 0 mls/hr 04/30/19 21:00 04/30/19 22:18 Miscellaneous Medication SC 0.05 mls HS BRODY Administration Insulin Human Regular 0 units 04/28/19 17:48 04/30/19 22:16 Humulin R SC 4 units Q4H PRN Administration POST OP SLIDING SCALE Protocol Ketorolac Tromethamine 15 mg 04/28/19 18:00 05/01/19 05:10 Toradol IVP 05/01/19 18:01 15 mg Q6HR BRODY Administration Pantoprazole Sodium 40 mg 04/29/19 09:00 05/01/19 08:41 Protonix PO 40 mg DAILY BRODY Administration Potassium Chloride 20 meq 04/28/19 17:46 04/29/19 01:55 Kcl IVPB 20 meq PRN PRN Administration K level </= 4.0 Sodium Chloride 10 ml 04/28/19 17:46 05/01/19 08:42 Flush - Normal Saline IVF 10 ml PRN PRN Administration Saline Flush Tramadol HCl 50 mg 04/29/19 06:54 05/01/19 04:10 Ultram PO 50 mg Q6H PRN Administration Moderate Pain (4-6) - Exam Eye: PERRL Heart: RRR, no murmur, no gallops, no rubs, normal peripheral pulses Respiratory: CTAB, no wheezes, no rales, no ronchi, normal chest expansion, no tachypnea Gastrointestinal: soft, non-tender, non-distended, normal bowel sounds, no palpable masses, no hepatomegaly, no splenomegaly Extremities: no cyanosis, no clubbing Hosp A/P (1) CAD (coronary artery disease) Code(s): I25.10 - ATHSCL HEART DISEASE OF [place] CORONARY ARTERY W/O ANG PCTRS Status: Acute (2) Hypertension Code(s): I10 - ESSENTIAL (PRIMARY) HYPERTENSION Status: Acute (3) Diabetes mellitus type 2 in nonobese Code(s): E11.9 - TYPE 2 DIABETES MELLITUS WITHOUT COMPLICATIONS Status: Acute - Plan * CAD s/p CABG X4 vessels- * AFIB- he has converted to sinus rhythm- he is on an Amiodarone drip- await further recommendations from Cardiology * HTN- blood pressure is controlled * DM- blood glucose is a bit elevated- low dose of Lantus has been added- will monitor * Continue SSI * Continue Cardiac Rehab
[2019-05-01] MEDS: Carvedilol 3.125 MG TAB PO SCH (17:16)
[2019-05-01] MEDS: Insulin Glargine 5 UNITS in Pre-Filled Syringe 1 EACH SC SCH (20:42)
[2019-05-01] MEDS: Atorvastatin Calcium 40 MG TAB PO SCH (20:44)
[2019-05-02] MEDS: traMADol HCl 50 MG TAB PO PRN ×2 (06:10→19:42)
[2019-05-02] MEDS: glipiZIDE 10 MG TAB PO SCH ×2 (09:14→18:36)
[2019-05-02] MEDS: Carvedilol 3.125 MG TAB PO SCH (09:14)
[2019-05-02] MEDS: Aspirin 325 mg Enteric Coated Tablet PO SCH (09:14)
[2019-05-02] MEDS: Amiodarone 200 MG TAB PO SCH ×2 (09:15→20:40)
[2019-05-02 09:44] LABS: #Eosinphils 0.2 thou/uL (0.0-0.7); #Monocytes 0.7 thou/uL (0.11-0.59); #Neutrophils 5.3 thou/uL (1.40-6.50); %Basophils 0.3 % (0.0-1.0); %Eosinophils 2.7 % (0.0-10.0); %Lymphocytes 13.2 % (21.0-51.0); %Monocytes 9.8 % (0.0-10.0); %Neutrophils 74.1 % (42.0-75.0); Hemoglobin 9.6 g/dL (14.0-18.0); Mean Corpuscular HGB CONC 34.2 g/dL (32.0-36.0); Mean Corpuscular Hemoglobin 31.2 pg (27.0-31.0); Mean Corpuscular Volume 91.4 fL (78.0-98.0); Platelet Count 128 thou/uL (130-400); RBC Distribution Width 12.2 % (11.5-14.5); Red Blood Cell (RBC) Count 3.07 mill/uL (4.70-6.10); White Blood Cell (WBC) Count 7.2 thou/uL (4.8-10.8)
[2019-05-02] MEDS ORDERED: Carvedilol 3.125 MG TAB PO SCH ×3 (09:44→17:00)
[2019-05-02 09:57] LABS: Anion Gap 10 mmol/L (10-20); BUN (Urea Nitrogen) 20 mg/dL (8.4-25.7); Calc. Creatinine Clearance 67 mL/min (70-130); Calcium 8.7 mg/dL (7.8-10.44); Carbon Dioxide 25 mmol/L (23-31); Chloride 104 mmol/L (98-107); Estimated GFR-MDRD 59; Glucose 159 mg/dL (83-110); Potassium 4.4 mmol/L (3.5-5.1); Sodium 135 mmol/L (136-145)
[2019-05-02] MEDS ORDERED: Carvedilol 6.25 MG TAB PO SCH ×2 (10:00)
--- NOTE | 2019-05-02 10:40 | PDOC.HOSPP ---
- Subjective Encounter Date: 05/02/19 Encounter Time: 10:38 Subjective: Mr. Reyes was seen today in follow-up post CABG. He does not have any new complaints. - Objective Vital Signs & Weight: Vital Signs (12 hours) Temp Pulse Resp BP Pulse Ox 05/02/19 07:53 96.9 F L 86 16 130/70 98 05/02/19 04:00 98.5 F 85 14 123/68 94 L Weight Weight 186 lb 12.8 oz Most Recent Monitor Data Heart Rate from ECG 111 NIBP 123/61 NIBP BP-Mean 81 Respiration from ECG 27 SpO2 96 I&O: 05/01/19 05/02/19 05/03/19 06:59 06:59 06:59 Intake Total 450 880 Output Total 600 1375 Balance -150 -495 Result Diagrams: 05/02/19 09:17 05/02/19 09:17 Additional Labs: Accuchecks 05/02/19 05/01/19 05/01/19 05:35 20:27 16:39 POC Glucose 164 H 139 H 115 H 05/01/19 10:38 POC Glucose 209 H Hospitalist ROS - Medication Medications: Active Medications Generic Name Dose Route Start Last Admin Trade Name Freq PRN Reason Stop Dose Admin Acetaminophen 650 mg 04/28/19 17:46 04/29/19 07:32 Tylenol PO 650 mg Q6H PRN Administration Headache/Fever Or Mild Pain Amiodarone HCl 400 mg 05/01/19 09:00 05/02/19 09:15 Cordarone PO 400 mg BID BRODY Administration Aspirin 325 mg 04/30/19 09:00 05/02/19 09:14 Ecotrin PO 325 mg DAILY BRODY Administration Atorvastatin Calcium 40 mg 04/29/19 21:00 05/01/19 20:44 Lipitor PO 40 mg HS BRODY Administration Carvedilol 1.5625 mg 05/02/19 10:15 05/02/19 10:30 Coreg PO 05/02/19 12:00 1.5625 mg NOW BRODY Administration Glipizide 10 mg 04/29/19 07:30 05/02/19 09:14 Glucotrol PO 10 mg BID-AC BRODY Administration Insulin Glargine 5 units/ 0.05 mls @ 0 mls/hr 04/30/19 21:00 05/01/19 20:42 Miscellaneous Medication SC 0.05 mls HS BRODY Administration Insulin Human Regular 0 units 04/28/19 17:48 05/01/19 11:20 Humulin R SC 6 units Q4H PRN Administration POST OP SLIDING SCALE Protocol Pantoprazole Sodium 40 mg 04/29/19 09:00 05/02/19 09:14 Protonix PO 40 mg DAILY BRODY Administration Potassium Chloride 20 meq 04/28/19 17:46 04/29/19 01:55 Kcl IVPB 20 meq PRN PRN Administration K level </= 4.0 Sodium Chloride 10 ml 04/28/19 17:46 05/01/19 08:42 Flush - Normal Saline IVF 10 ml PRN PRN Administration Saline Flush Tramadol HCl 50 mg 04/29/19 06:54 05/02/19 06:10 Ultram PO 50 mg Q6H PRN Administration Moderate Pain (4-6) - Exam Eye: PERRL Heart: RRR, no murmur, no gallops, no rubs, normal peripheral pulses Respiratory: CTAB, no wheezes, no rales, no ronchi, normal chest expansion, no tachypnea, normal percussion Gastrointestinal: soft, non-tender, non-distended, normal bowel sounds, no palpable masses, no hepatomegaly Extremities: no cyanosis, no clubbing, no edema Hosp A/P (1) CAD (coronary artery disease) Code(s): I25.10 - ATHSCL HEART DISEASE OF [place] CORONARY ARTERY W/O ANG PCTRS Status: Acute (2) Hypertension Code(s): I10 - ESSENTIAL (PRIMARY) HYPERTENSION Status: Acute (3) Diabetes mellitus type 2 in nonobese Code(s): E11.9 - TYPE 2 DIABETES MELLITUS WITHOUT COMPLICATIONS Status: Acute (4) AF (paroxysmal atrial fibrillation) Code(s): I48.0 - PAROXYSMAL ATRIAL FIBRILLATION Status: Acute - Plan * CAD s/p CABG X4 vessels- * AFIB- he has converted to sinus rhythm- he had an episode of AFIB again today - discharge has been placed on hold- continue Amiodarone * HTN- blood pressure is controlled * DM- blood glucose is stable- continue glypizide and Lantus and SSI * Continue Cardiac Rehab * Disposition as per Cardiology
--- NOTE | 2019-05-02 11:29 | DIS ---
DATE OF ADMISSION: 04/28/2019 DATE OF DISCHARGE: 05/02/2019 DIAGNOSES: 1. Acute ST-elevation myocardial infarction. 2. Coronary artery disease. 3. Hypertension. 4. Diabetes mellitus. 5. Dyslipidemia. 6. Postoperative transient atrial fibrillation controlled with amiodarone. PROCEDURES: 1. Cardiac catheterization. 2. Coronary artery bypass grafting acutely x4 -. a. Left internal mammary to LAD. b. Excess vein grafts to PDA. c. Excess vein grafts to OM. d. Excess vein grafts to diagonal. DESCRIPTION OF HOSPITAL STAY: Mr. Reyes was admitted through emergency department with an ST-elevation myocardial infarction. He was taken to the research laboratory specialist, found to have severe three-vessel disease and subsequently taken to the operating room later that day for coronary artery bypass grafting. He has done well postoperatively. He had a short bout of atrial fibrillation, which was controlled with amiodarone. At the time of discharge, he is ambulatory, tolerating regular diet, having good bowel and bladder function. Incisions were clean and dry without evidence of infection. DISCHARGE MEDICATIONS: Include; 1. Aspirin 325 mg daily. 2. Lipitor 40 mg at bedtime. 3. Glipizide 10 mg b.i.d. 4. Metformin 1000 mg b.i.d. 5. Tramadol 50 mg q.6 p.r.n. FOLLOWUP: Follow up is with me in 2 weeks, Dr. Aponte in a month. Job ID: [id number]
[2019-05-02] MEDS: Insulin Regular 300 UNITS/3 ML VIAL SC PRN (12:40)
--- NOTE | 2019-05-02 14:08 | PRG ---
DATE OF SERVICE: 05/02/2019 SUBJECTIVE: Mr. Reyes was about to go home this morning, started having recurrent atrial fibrillation with a rapid rate, rates up to 150. He is feeling well now. OBJECTIVE: VITAL SIGNS: Blood pressure is 130/66, pulse 80 and it is regular. LUNGS: Clear. CARDIAC: Normal S1, normal S2. ABDOMEN: Soft, nontender. ASSESSMENT: 1. Status post bypass surgery. 2. Recurrent atrial fibrillation. PLAN: 1. Keep one more day loading with amiodarone. 2. Increase carvedilol. 3. Home tomorrow if doing well. Dr. Chatman to see the patient this weekend. The patient will be released home in the morning if doing well, to follow up with Dr. Aponte. Job ID: [id number]
[2019-05-02] MEDS: Carvedilol 6.25 MG TAB PO SCH (18:40)
[2019-05-02] MEDS: Acetaminophen 325 MG TAB PO PRN (19:42)
[2019-05-02] MEDS: Insulin Glargine 5 UNITS in Pre-Filled Syringe 1 EACH SC SCH (20:40)
[2019-05-02] MEDS: Atorvastatin Calcium 40 MG TAB PO SCH (20:40)
[2019-05-03] MEDS: glipiZIDE 10 MG TAB PO SCH (08:41)
[2019-05-03] MEDS: Amiodarone 200 MG TAB PO SCH (08:42)
[2019-05-03] MEDS: Aspirin 325 mg Enteric Coated Tablet PO SCH (08:42)
[2019-05-03] MEDS: Carvedilol 6.25 MG TAB PO SCH (08:42)
[2019-05-03 15:53] VITALS: BP 138/67; TEMP 98
--- NOTE | 2019-05-04 08:06 | PDOC.CPN ---
- Subjective Date: 05/03/19 Time: 11:00 Interval history: <Late charting> The pt seen and examined on 05/03/2019 by me. No cardiac complaints. No overnight events. No Afib event over 24 hours. - Objective Allergies/Adverse Reactions: Allergies Allergy/AdvReac Type Severity Reaction Status Date / Time Sulfa (Sulfonamide Allergy Verified 04/28/19 10:57 Antibiotics) Vital Signs & Weight: Weight 182 lb - Physical Exam General: alert & oriented x3 HEENT: mucus membranes moist Neck: supple neck Cardiac: regular rate and rhythm, S1/S2 Lungs: clear to auscultation, decreased breath sounds Neuro: cranial nerve 2-12 intact Skin: other (surgical sites are [employer] without any drainage or swelling) - Labs Result Diagrams: 05/02/19 09:17 05/02/19 09:17 Troponin/CKMB CK-MB (CK-2) 9.8 ng/mL (0-6.6) H* 04/29/19 04:30 Troponin I 10.549 ng/mL (< 0.028) H* 04/29/19 04:30 - Telemetry Sinus rhythms and dysrhythmias: sinus rhythm - Assessment/Plan Assessment/Plan: 1. CAD with s/p CABG x 4 - stable; on BBlocker, ASA, Statin. 2. Post-op AFib - no Afib more than 24 hours; continue Amiodarone 400mg BID since 05/01/2019 3. HTN - stable 4. DM type 2 - managed by PCP MAR reviewed * From Cardiac standpoint, the pt is stable to d/c home * The pt will f/u with Dr Aponte's office as schedule.
--- NOTE | 2019-05-04 12:44 | EKG ---
Test Reason : POST OP Blood Pressure : / mmHG Vent. Rate : 102 BPM Atrial Rate : 102 BPM P-R Int : 152 ms QRS Dur : 086 ms QT Int : 368 ms P-R-T Axes : 009 005 048 degrees QTc Int : 479 ms Sinus tachycardia Low voltage QRS Inferior infarct (cited on or before 28-APR-2019) ACUTE NC / STEMI Consider right ventricular involvement in acute inferior infarct Abnormal ECG When compared with ECG of 28-APR-2019 09:07, (Unconfirmed) Serial changes of Inferior infarct Present Confirmed by MISSY TERRAZAS (2) on 05/04/2019 12:44:19 PM Referred By: SALINA Confirmed By:MISSY TERRAZAS
--- NOTE | 2019-05-04 12:46 | EKG ---
Test Reason : CHESTPAIN Blood Pressure : / mmHG Vent. Rate : 075 BPM Atrial Rate : 075 BPM P-R Int : 152 ms QRS Dur : 078 ms QT Int : 400 ms P-R-T Axes : 066 050 050 degrees QTc Int : 446 ms Normal sinus rhythm Normal ECG Confirmed by MISSY TERRAZAS (2) on 05/04/2019 12:45:52 PM Referred By: SALINA Confirmed By:MISSY TERRAZAS
== END 2019-05-03 16:34 | disposition home or self-care (01) | DRG 234 ==
LOC: ERS 08:51 → CCU 09:15 → CCL 09:27 → CCU 09:52 → 2NO 04-29 20:36
PROVIDERS: ADMIT Internal Medicine Cardiovascular Disease; ATTEND Internal Medicine Cardiovascular Disease
PROC: 4A023N7 Measurement of Cardiac Sampling and Pressure, Left Heart, Percutaneous Approach (ICD-10-PCS; principal; 2019-04-28)
PROC: 02100Z9 Bypass Coronary Artery, One Artery from Left Internal Mammary, Open Approach (ICD-10-PCS; 2019-04-28)
PROC: 0212093 Bypass Coronary Artery, Three Arteries from Coronary Artery with Autologous Venous Tissue, Open Approach (ICD-10-PCS; 2019-04-28)
PROC: 06BQ3ZZ Excision of Left Saphenous Vein, Percutaneous Approach (ICD-10-PCS; 2019-04-28)
PROC: B2151ZZ Fluoroscopy of Left Heart using Low Osmolar Contrast (ICD-10-PCS; 2019-04-28)
PROC: B2111ZZ Fluoroscopy of Multiple Coronary Arteries using Low Osmolar Contrast (ICD-10-PCS; 2019-04-28)
PROC: 5A1221Z Performance of Cardiac Output, Continuous (ICD-10-PCS; 2019-04-28)
DX: I21.19 ST elevation (STEMI) myocardial infarction involving other coronary artery of inferior wall (principal); E78.00 Pure hypercholesterolemia, unspecified; I10 Essential (primary) hypertension; E11.9 Type 2 diabetes mellitus without complications; F17.210 Nicotine dependence, cigarettes, uncomplicated; E78.5 Hyperlipidemia, unspecified; I25.10 Atherosclerotic heart disease of native coronary artery without angina pectoris; I48.0 Paroxysmal atrial fibrillation; Z95.5 Presence of coronary angioplasty implant and graft; Z88.2 Allergy status to sulfonamides; Z79.84 Long term (current) use of oral hypoglycemic drugs; Z79.899 Other long term (current) drug therapy; Z79.82 Long term (current) use of aspirin
CPT/HCPCS: 36415; 36416; 36430; 71045; 80048; 80053; 80061; 80076; 80162; 82553; 83036; 83735; 84443; 84484; 85025; 85347; 85610; 85730; 86850; 86900; 86901; 93005; 93010; 93458; 93798; 94640; 94760; 96374; 96375; 99152; C1769; J0131; J0282; J0690; J1100; J1160; J1644; J1815; J1885; J2001; J2250; J2270; J2405; J2440; J2720; J3010; J3370; J3475; J3480; J3490; J7050; J7070; J7620; P9045; Q9967; S0017; S0028

== ENCOUNTER 2020-09-08 10:43 | Inpatient (IN) | payer MEDICARE, BC ==
[2020-09-08 11:06] LABS: #Eosinphils 0.3 thou/uL (0.0-0.7); #Lymphocytes 1.8 thou/uL (1.20-3.40); #Monocytes 0.8 thou/uL (0.11-0.59); #Neutrophils 8.1 thou/uL (1.40-6.50); %Basophils 0.2 % (0.0-1.0); %Eosinophils 2.7 % (0.0-10.0); %Lymphocytes 16.4 % (21.0-51.0); %Monocytes 7.5 % (0.0-10.0); %Neutrophils 73.2 % (42.0-75.0); Mean Corpuscular HGB CONC 33.4 g/dL (32.0-36.0); Mean Corpuscular Hemoglobin 31.2 pg (27.0-31.0); Mean Corpuscular Volume 93.3 fL (78.0-98.0); Mean Platelet Volume 8.7 fL (7.4-10.4); Platelet Count 156 thou/uL (130-400)
[2020-09-08 11:17] LABS: PTT 31.2 sec (22.9-36.1); Prothrombin Time 13.5 sec (12.0-14.7)
[2020-09-08 11:19] LABS: ALT (SGPT) 13 U/L (8-55); AST (SGOT) 23 U/L (5-34); Albumin 4.2 g/dL (3.4-4.8); Alkaline Phosphatase 68 U/L (40-110); Anion Gap 13 mmol/L (10-20); BUN (Urea Nitrogen) 19 mg/dL (8.4-25.7); Calc. Creatinine Clearance 0 mL/min (70-130); Calcium 9.6 mg/dL (7.8-10.44); Carbon Dioxide 24 mmol/L (23-31); Chloride 105 mmol/L (98-107); Globulin 2.5 g/dL (2.4-3.5); Glucose 76 mg/dL (83-110); Potassium 4.5 mmol/L (3.5-5.1); Protein, Total 6.7 g/dL (5.8-8.1); Sodium 137 mmol/L (136-145)
[2020-09-08] MEDS ORDERED: Dextrose 50% Abboject 50 ML SYRINGE ONE (12:31)
[2020-09-08 12:41] LABS: SARS-CoV-2 NAA Rapid Test Not Detected (NotDetected)
[2020-09-08] MEDS ORDERED: Insulin Regular 300 UNITS/3 ML VIAL SC PRN (14:30)
[2020-09-08] MEDS ORDERED: hydrALAZINE 20 MG/ML VIAL SLOW IVP PRN (14:50)
[2020-09-08] MEDS ORDERED: Iopamidol-370 76% 500 ML 1 ML ONE (14:52)
[2020-09-08] MEDS ORDERED: Lorazepam 2 MG/ML VIAL ONE (14:58)
[2020-09-08] MEDS ORDERED: Lorazepam 2 MG/ML VIAL SLOW IVP SCH (15:00)
[2020-09-08 17:47] LABS: Glucose 59 mg/dL (83-110)
[2020-09-08] MEDS ORDERED: Atorvastatin Calcium 40 MG TAB PO SCH (21:00)
[2020-09-08 21:12] LABS: Glucose 210 mg/dL (83-110)
[2020-09-08] MEDS ORDERED: Cyclobenzaprine 10 MG TAB PO SCH (22:00)
[2020-09-09 05:16] LABS: Hemoglobin A1c 7.5 % (4.0-6.0)
[2020-09-09 05:18] LABS: Cardiac Risk 3.4 (Less than 4.5)
[2020-09-09 05:47] VITALS: BMI 24.8
[2020-09-09] MEDS ORDERED: Acetaminophen/Codeine 30-300mg Tablet PO PRN (07:38)
[2020-09-09] MEDS ORDERED: Insulin Regular 300 UNITS/3 ML VIAL SC PRN ×2 (07:41)
[2020-09-09] MEDS ORDERED: Dextrose 5% in Water 1,000 ML IV PRN (07:41)
[2020-09-09] MEDS ORDERED: Dextrose 50% Abboject 50 ML SYRINGE SLOW IVP PRN (07:41)
[2020-09-09 07:42] LABS: Glucose 283 mg/dL (83-110)
[2020-09-09] MEDS ORDERED: Cyclobenzaprine 10 MG TAB PO PRN (07:48)
[2020-09-09] MEDS ORDERED: glipiZIDE 5 MG TAB PO SCH ×2 (08:00→16:30)
[2020-09-09] MEDS ORDERED: Lisinopril 20 MG TAB PO SCH (09:00)
[2020-09-09] MEDS ORDERED: Enoxaparin Sodium 40 MG/0.4 ML SYRINGE SC SCH (09:00)
[2020-09-09] MEDS ORDERED: Senokot S 8.6-50 MG TAB PO SCH (09:00)
[2020-09-09] MEDS ORDERED: Aspirin 325 MG TAB PO SCH (09:00)
[2020-09-09] MEDS ORDERED: Cyclobenzaprine 10 MG TAB PO SCH (09:00)
[2020-09-09] MEDS ORDERED: Magnesium Oxide 400 MG TAB PO SCH (09:00)
[2020-09-09] MEDS ORDERED: glipiZIDE 10 MG TAB PO SCH (09:00)
[2020-09-09] MEDS: Carvedilol 6.25 MG TAB PO SCH ×2 (09:16→16:27)
[2020-09-09 15:58] VITALS: BP 109/73; TEMP 97.8
[2020-09-09] MEDS ORDERED: Clopidogrel Bisulfate 75 MG TAB PO SCH (16:00)
[2020-09-09] MEDS ORDERED: Sodium Chloride 0.9% 500 ML IV SCH (16:30)
[2020-09-09] MEDS ORDERED: Atorvastatin Calcium 40 MG TAB PO SCH (21:00)
[2020-09-10] MEDS ORDERED: glipiZIDE 5 MG TAB PO SCH (07:30)
[2020-09-10] MEDS ORDERED: Clopidogrel Bisulfate 75 MG TAB PO SCH (09:00)
[2020-09-10] MEDS ORDERED: Aspirin 81 mg Enteric Coated Tablet PO SCH (09:00)
[2020-09-11] MEDS ORDERED: metFORMIN 500 MG TAB PO SCH (08:00)
== END 2020-09-09 18:05 | disposition home or self-care (01) | DRG 66 ==
LOC: ERS 10:43 → ERHOLD 14:36 → 2SE 22:57
PROVIDERS: ADMIT Internal Medicine; ATTEND Internal Medicine
DX: I63.9 Cerebral infarction, unspecified (principal); E78.5 Hyperlipidemia, unspecified; I25.10 Atherosclerotic heart disease of native coronary artery without angina pectoris; I12.9 Hypertensive chronic kidney disease with stage 1 through stage 4 chronic kidney disease, or unspecified chronic kidney disease; N18.2 Chronic kidney disease, stage 2 (mild); E11.22 Type 2 diabetes mellitus with diabetic chronic kidney disease; E11.649 Type 2 diabetes mellitus with hypoglycemia without coma; I08.3 Combined rheumatic disorders of mitral, aortic and tricuspid valves; Z20.822 Contact with and (suspected) exposure to COVID-19; H53.461 Homonymous bilateral field defects, right side; I48.0 Paroxysmal atrial fibrillation; Z95.1 Presence of aortocoronary bypass graft; Z88.2 Allergy status to sulfonamides; Z79.82 Long term (current) use of aspirin; Z79.84 Long term (current) use of oral hypoglycemic drugs
CPT/HCPCS: 36415; 36416; 70450; 70496; 70498; 70551; 71045; 80053; 80061; 82947; 83036; 84484; 85025; 85610; 85730; 93005; 93306; 94760; 95712; 95819; 95957; 96374; 96375; J1650; J1815; J2060; Q9967; U0002

== ENCOUNTER 2022-03-02 08:15 | Outpatient (CLI) | payer MEDICARE, BC ==
[2022-03-02 10:45] LABS: #Basophils 0.1 10x3/uL (0.0-0.2); #Eosinphils 0.2 10x3/uL (0.0-0.5); #Monocytes 0.5 10x3/uL (0.0-1.1); #Neutrophils 4.1 10x3/uL (1.5-8.4); %Eosinophils 2.6 % (0.0-6.0); %Lymphocytes 23.2 % (18.0-47.0); %Monocytes 8.3 % (0.0-10.0); %Neutrophils 64.7 % (40.0-75.0); Hemoglobin 13.3 g/dL (13.5-17.5); Mean Corpuscular HGB CONC 32.7 g/dL (32.0-36.0); Mean Corpuscular Volume 91.7 fl (81.2-95.1); Mean Platelet Volume 12.3 fl (7.4-10.4); Platelet Count 141 10x3/uL (150-450); RBC Distribution Width 13.9 % (11.5-14.5); Red Blood Cell (RBC) Count 4.44 10x6/uL (4.32-5.72); White Blood Cell (WBC) Count 6.3 10x3/uL (3.5-10.5)
== END 2022-03-02 08:16 | disposition home or self-care (01) ==
LOC: LABBT 08:15
PROVIDERS: ATTEND Orthopaedic Surgery Hand Surgery
DX: Z01.812 Encounter for preprocedural laboratory examination (principal); M72.0 Palmar fascial fibromatosis [Dupuytren]; Z20.822 Contact with and (suspected) exposure to COVID-19
CPT/HCPCS: 85025; 87811

== ENCOUNTER 2023-08-03 06:18 | Day surgery (SDC) | payer MEDICARE ==
[2023-08-01 12:47] VITALS: BMI 24.4
[2023-08-03 07:38] LABS: #Basophils 0.1 thou/uL (0.0-0.2); #Eosinphils 0.2 thou/uL (0.0-0.7); #Monocytes 0.5 thou/uL (0.11-0.59); #Neutrophils 4.9 thou/uL (1.40-6.50); %Basophils 0.7 % (0.0-1.0); %Eosinophils 2.2 % (0.0-10.0); %Lymphocytes 21.6 % (21.0-51.0); %Monocytes 7.5 % (0.0-10.0); %Neutrophils 67.9 % (42.0-75.0); Hematocrit 37.9 % (42.0-52.0); Hemoglobin 12.7 g/dL (14.0-18.0); Mean Corpuscular HGB CONC 33.5 g/dL (32.0-36.0); Mean Corpuscular Hemoglobin 31.1 pg (27.0-31.0); Mean Corpuscular Volume 92.9 fl (78.0-98.0); Mean Platelet Volume 12.1 fL (7.4-10.4); Platelet Count 117 10x3/uL (130-400); RBC Distribution Width 14.2 % (11.5-14.5); Red Blood Cell (RBC) Count 4.08 mill/uL (4.70-6.10); White Blood Cell (WBC) Count 7.2 10x3/uL (4.8-10.8)
[2023-08-03] MEDS ORDERED: Bupivacaine PF 0.5% 30 ML VIAL ONE (07:57)
[2023-08-03] MEDS ORDERED: Bacitracin Zinc Ointment 30 gm TUBE ONE (07:58)
[2023-08-03 08:09] LABS: CellaVision Operator ID LAB.KW3; Platelet Adequacy Comment Platelets Decreased; RBC Morphology Within Normal Limits
[2023-08-03] MEDS ORDERED: Sodium Chloride 0.9% 100 ML ONE (08:34)
[2023-08-03] MEDS ORDERED: CEFAZOLIN 2 GM VIAL ONE (08:34)
[2023-08-03] MEDS ORDERED: PROPOFOL 20 ML ONE (08:37)
[2023-08-03] MEDS ORDERED: Lidocaine 2% PF 5 ML VIAL ONE (08:37)
[2023-08-03] MEDS ORDERED: Phenylephrine 10 MG/ML VIAL ONE (09:00)
[2023-08-03] MEDS ORDERED: Sodium Chloride 0.9% 250 ML 250 ML ONE (09:00)
[2023-08-03] MEDS ORDERED: Dexamethasone 20 MG/5 ML VIAL ONE (09:10)
[2023-08-03] MEDS ORDERED: Ondansetron PF 4 MG/2 ML Vial ONE (09:10)
== END 2023-08-03 12:57 | disposition home or self-care (01) ==
LOC: SDC 06:18
PROVIDERS: ATTEND Orthopaedic Surgery Hand Surgery
PROC: 01N50ZZ Release Median Nerve, Open Approach (ICD-10-PCS; principal; 2023-08-03)
DX: G56.02 Carpal tunnel syndrome, left upper limb (principal); M72.0 Palmar fascial fibromatosis [Dupuytren]; I10 Essential (primary) hypertension; E11.9 Type 2 diabetes mellitus without complications; I25.10 Atherosclerotic heart disease of native coronary artery without angina pectoris; Z88.2 Allergy status to sulfonamides; Z79.02 Long term (current) use of antithrombotics/antiplatelets; Z79.84 Long term (current) use of oral hypoglycemic drugs; Z79.899 Other long term (current) drug therapy
CPT/HCPCS: 26123; 26125; 64721; 85025; A6223; 88304; J0665; J1100; J2001; J2371; J2405; J2704; J3490; J7050

== ENCOUNTER 2025-02-23 10:46 | Day surgery (SDC) | payer MEDICARE ==
[2025-02-20 09:53] VITALS: BMI 23.7
[2025-02-23] MEDS ORDERED: PROPOFOL 20 ML ONE (12:04)
[2025-02-23] MEDS ORDERED: Ondansetron PF 4 MG/2 ML Vial ONE (12:04)
[2025-02-23 12:08] LABS: #Basophils 0.05 10x3/uL (0.0-0.2); #Eosinophils 0.12 10x3/uL (0.0-0.7); #Monocytes 0.56 10x3/uL (0.11-0.59); #Neutrophils 4.95 10x3/uL (1.40-6.50); %Basophils 0.7 % (0.0-1.0); %Eosinophils 1.7 % (0.0-10.0); %Lymphocytes 20.8 % (21.0-51.0); %Monocytes 7.8 % (0.0-10.0); %Neutrophils 68.7 % (42.0-75.0); Hematocrit 39.4 % (42.0-52.0); Hemoglobin 13.1 g/dL (14.0-18.0); Mean Corpuscular Hemoglobin 30.8 pg (27.0-31.0); Mean Corpuscular Volume 92.5 fL (78.0-98.0); Platelet Count 119 10x3/uL (130-400); Red Blood Cell (RBC) Count 4.26 mill/uL (4.70-6.10); White Blood Cell (WBC) Count 7.20 10x3/uL (4.8-10.8)
[2025-02-23 12:19] LABS: Anion Gap 12 mmol/L (10-20); BUN (Urea Nitrogen) 20 mg/dL (8.4-25.7); Calc. Creatinine Clearance 58 mL/min (70-130); Calcium 9.1 mg/dL (7.8-10.44); Carbon Dioxide 23 mmol/L (23-31); Chloride 109 mmol/L (98-107); Glucose 149 mg/dL (83-110); Potassium 4.4 mmol/L (3.5-5.1); Sodium 140 mmol/L (136-145)
[2025-02-23 12:36] LABS: Burr Cells SLIGHT = 2-5 cells HPF (0-1); Platelet Adequacy Comment Platelets Decreased; Polychromasia SLIGHT = 2-3 cells HPF (0-2); Smudge Cells 4.0 %
[2025-02-23] MEDS ORDERED: fentaNYL PF 100 MCG/2 ML SYRINGE ONE (13:08)
[2025-02-23] MEDS ORDERED: Lidocaine 1% PF 5 ML VIAL ONE (13:15)
== END 2025-02-23 14:49 | disposition home or self-care (01) ==
LOC: MRI 10:46
PROVIDERS: ATTEND Family Medicine
DX: M51.17 Intervertebral disc disorders with radiculopathy, lumbosacral region (principal); I10 Essential (primary) hypertension; I25.10 Atherosclerotic heart disease of native coronary artery without angina pectoris; E11.9 Type 2 diabetes mellitus without complications; E78.5 Hyperlipidemia, unspecified; F17.200 Nicotine dependence, unspecified, uncomplicated; Z86.73 Personal history of transient ischemic attack (TIA), and cerebral infarction without residual deficits; Z95.1 Presence of aortocoronary bypass graft; Z88.2 Allergy status to sulfonamides; Z79.02 Long term (current) use of antithrombotics/antiplatelets; Z79.84 Long term (current) use of oral hypoglycemic drugs; Z79.899 Other long term (current) drug therapy
CPT/HCPCS: 72148; 80048; 85025; J1100; J2405; J2704; 93005; 93010